=== PATIENT | female | born 1980 | race Caucasian/White ===

== ENCOUNTER 2018-02-27 08:37 | Emergency (ER) | payer OTHER ==
[~2018-02-27] VITALS: Ht 162.6 cm; Wt 75.4 kg
[~2018-02-27 08:37] MED LIST: ALBUAER9 INH; B-COTAB18 PO; CETI10TA10 PO; CLIN45GE PO; CPR/500 PO; FERR1TAB24 PO; FLNIN/ NAE; IBUP-1050 PO; MEDR150I IM; MULT-506 PO; OMEG10002 PO; OMEP20CA9 PO; TRET0.1C42 TOP; ULT/50 PO
[2018-02-27 08:43] VITALS: TEMP 36.8; Ht 162.6 cm; Wt 75.4 kg
[2018-02-27] MEDS ORDERED: MAGN400T6 PO (09:20)
[2018-02-27 09:33] LABS: BASO % 0.2 %; BASO ABS # 0.01 K/uL (0-0.2); EOS % 3.8 %; EOS ABS # 0.16 K/uL (0-0.5); HEMATOCRIT 41.2 % (37-47); HEMOGLOBIN 13.9 g/dL (12.0-16.0); LYMPH % 40.6 %; MEAN CELL VOLUME 96.7 fL (80-100); MEAN CORPUSCULAR HEMOGLOBIN 32.6 pg (25-34); MEAN CORPUSCULAR HGB CONC 33.7 g/dl (32-36); MEAN PLATELET VOLUME 10.8 fL (7.4-10.4); MONO % 7.2 %; NEUT % 48.2 %; NEUT ABS # 2.02 K/uL (1.4-6.5); PLATELET COUNT 214 K/uL (130-400); RED CELL DISTRIBUTION WIDTH CV 12.7 % (11.5-14.5); RED CELL DISTRIBUTION WIDTH SD 44.2 fL (36.4-46.3); WHITE BLOOD COUNT 4.19 K/uL (4.8-10.8)
[2018-02-27 09:57] LABS: CALCIUM 8.7 mg/dl (8.5-10.1); CREATININE 0.96 mg/dl (0.60-1.20); POTASSIUM 4.1 mmol/L (3.5-5.1)
[2018-02-27 10:00] LABS: TOTAL PROTEIN 7.4 gm/dl (6.4-8.2)
--- NOTE | 2018-02-27 10:18 | EMERGENCY ROOM VISIT NOTE ---
History First contact with patient: 08:48 Chief Complaint: NECK PAIN Stated Complaint: NECK PAIN, HEADACHE History of Present Illness The patient is a 37 year old female who presents to the Emergency Room via private vehicle with complaints of "neck pain, headache". The patient states that she has been experiencing neck pain for about 8 years and also a headache of which began potentially months ago but has worsened over the past few weeks. She notes nausea as well as ear pain. She states that she has a history of fibromyalgia. She points to the base of the skull or the spine meets the head is a location of pain that radiates anteriorly to her forehead. It is sharp in nature and severe at times. It is better with sleep and notes it is been getting worse over the past few days. She has tried tramadol, NSAIDs and muscle relaxers without relief. She states that the pain is mostly at the base of her the head and the superiormost portion of the neck. She was recommended chiropractic but does not want to do this. She notes she had an MRI of her head as well as evaluation of the arterial components of the brain of which were normal she states. She denies any prior injury to the head or neck. No history of VT, CVA or TIA. She rates her overall pain is a 3/10. Review of Systems A complete 10-point Review of Systems was discussed with the patient, with pertinent positives and negatives listed in the History of Present Illness. All remaining Review of Systems questions can be considered negative unless otherwise specified. Past Medical/Surgical History Medical Problems: (1) Allergic rhinitis (2) Anxiety State Nos (3) Asthma, Unspecified (4) Esophageal Reflux (5) Polycystic Ovaries Surgical Problems: (1) History of carpal tunnel release (2) History of lumbar discectomy Family History Cancer Diabetes mellitus Seizures Social History Smoking Status: Never Smoker Alcohol Use: none Drug Use: none Marital Status: single Housing Status: lives with family Occupation Status: employed Current/Historical Medications Scheduled Albuterol Sulfate (Proventil Hfa), 2 PUFF INH Q4HR PRN B-Complex Vitamins (Vitamin B Complex), 1 TAB PO QAM Cetirizine Hcl (Zyrtec), 10 MG PO HS Clindamycin Phosphate-Benzoyl (Acanya), 1 APPLN PO DAILY Fluticasone Propionate (Fluticasone Propionate), 2 SPRAYS SARAH BID Magnesium Oxide (Mag-Ox), 400 MG PO DAILY Medroxyprogesterone Acetate (C (Depo-Provera Contraceptiv), 1 INJ IM [id number] Multivitamin (Multivitamin), 1 TAB PO QAM [place]-3 Fatty Acids (Fish Oil), 1 TAB PO QAM Tramadol Hcl (Ultram), 50 MG PO Q4-6HR PRN Tretinoin (Tretinoin), 1 APPLN TOP HS Scheduled PRN Ibuprofen (Advil), 400 MG PO TID PRN for Pain Physical Exam Vital Signs Date Time Temp Pulse Resp B/P (MAP) Pulse Ox O2 Delivery O2 Flow Rate FiO2 02/27/18 10:33 54 18 114/75 100 02/27/18 08:43 36.8 58 18 119/73 100 Room Air Physical Exam VITAL SIGNS - Vital signs and nursing notes were reviewed. Stable. GENERAL - 37-year-old female appearing her stated age who is in no acute distress. Communicates well with provider and answers questions appropriately. SKIN - Without rashes. No meningeal or petechial rash. HEAD - NC/AT. EYES - PERRL with EOMI bilaterally. Sclera anicteric. EARS - No deformities of external structures noted on gross examination bilaterally. External auditory canals without discharge or otorrhea. Tympanic membranes pearly tamayo without retraction or bulging. No fluid or purulent material visualized behind the TM. Handle of malleus, umbo, cone of light, pars tensa/flaccid all easily visualized. NOSE - Midline and without cyanosis. No epistaxis or purulent drainage noted. MOUTH/OROPHARYNX - Without perioral cyanosis. Buccal mucosa pink and moist and without leukoplakia. Tongue midline with equal elevation of palate bilaterally. No tonsillar hypertrophy, erythema, or exudates noted. Fair dentition noted. NECK - Neck with FROM. Supple to palpation. No lymphadenopathy noted. No nuchal rigidity. Minimal superior C-spine tenderness. LUNGS - Chest wall symmetric without accessory muscle use, intercostals retractions, or central cyanosis. Normal vesicular breath sounds CTA B/L. No wheezes, rales, or rhonchi appreciated. CARDIAC - RRR with S1/S2. No murmur, rubs, or gallops appreciated. EXTREMITIES - No clubbing or peripheral cyanosis. No pretibial edema present. + 5/5 strength noted in UE/LE bilaterally. NEUROLOGIC - Cranial nerves II through XII grossly intact. Sensory intact to light touch throughout. PSYCH - A&Ox3 and cooperates fully with examiner. Pt is very pleasant and interacts well with examiner. Medical Decision & Procedures Laboratory Results 02/27/18 09:20 Red Blood Count 4.26, Mean Corpuscular Volume 96.7, Mean Corpuscular Hemoglobin 32.6, Mean Corpuscular Hemoglobin Concent 33.7, Mean Platelet Volume 10.8, Neutrophils (%) (Auto) 48.2, Lymphocytes (%) (Auto) 40.6, Monocytes (%) (Auto) 7.2, Eosinophils (%) (Auto) 3.8, Basophils (%) (Auto) 0.2, Neutrophils # (Auto) 2.02, Lymphocytes # (Auto) 1.70, Monocytes # (Auto) 0.30, Eosinophils # (Auto) 0.16, Basophils # (Auto) 0.01 02/27/18 09:20 Test 02/27/18 09:20 02/27/18 09:25 White Blood Count 4.19 K/uL (4.8-10.8) Red Blood Count 4.26 M/uL (4.2-5.4) Hemoglobin 13.9 g/dL (12.0-16.0) Hematocrit 41.2 % (37-47) Mean Corpuscular Volume 96.7 fL (80-100) Mean Corpuscular Hemoglobin 32.6 pg (25-34) Mean Corpuscular Hemoglobin Concent 33.7 g/dl (32-36) Platelet Count 214 K/uL (130-400) Mean Platelet Volume 10.8 fL (7.4-10.4) Neutrophils (%) (Auto) 48.2 % Lymphocytes (%) (Auto) 40.6 % Monocytes (%) (Auto) 7.2 % Eosinophils (%) (Auto) 3.8 % Basophils (%) (Auto) 0.2 % Neutrophils # (Auto) 2.02 K/uL (1.4-6.5) Lymphocytes # (Auto) 1.70 K/uL (1.2-3.4) Monocytes # (Auto) 0.30 K/uL (0.11-0.59) Eosinophils # (Auto) 0.16 K/uL (0-0.5) Basophils # (Auto) 0.01 K/uL (0-0.2) RDW Standard Deviation 44.2 fL (36.4-46.3) RDW Coefficient of Variation 12.7 % (11.5-14.5) Immature Granulocyte % (Auto) 0.0 % Immature Granulocyte # (Auto) 0.00 K/uL (0.00-0.02) Anion Gap 6.0 mmol/L (3-11) Est Creatinine Clear Calc Drug Dose 79.8 ml/min Estimated GFR () 87.6 Estimated GFR (Non- 75.6 BUN/Creatinine Ratio 9.6 (10-20) Calcium Level 8.7 mg/dl (8.5-10.1) Magnesium Level 1.9 mg/dl (1.8-2.4) Total Bilirubin 0.3 mg/dl (0.2-1) Aspartate Amino Transf (AST/SGOT) 18 U/L (15-37) Alanine Aminotransferase (ALT/SGPT) 24 U/L (12-78) Alkaline Phosphatase 47 U/L (45-117) Total Protein 7.4 gm/dl (6.4-8.2) Albumin 4.0 gm/dl (3.4-5.0) Globulin 3.4 gm/dl (2.5-4.0) Albumin/Globulin Ratio 1.2 (0.9-2) Lyme Disease IgG Antibody NEG (NEG) Lyme Disease IgM Antibody NEG (NEG) Urine Color YELLOW Urine Appearance CLEAR (CLEAR) Urine pH 6.5 (4.5-7.5) Urine Specific [place] 1.009 (1.000-1.030) Urine Protein NEG (NEG) Urine Glucose (UA) NEG (NEG) Urine Ketones NEG (NEG) Urine Occult Blood NEG (NEG) Urine Nitrite NEG (NEG) Urine Bilirubin NEG (NEG) Urine Urobilinogen NEG (NEG) Urine Leukocyte Esterase NEG (NEG) Urine Test NEG (NEG) Medical Decision Patient was seen and evaluated as above in room A4. Review was performed of nursing notes and vital signs. After obtaining a thorough history and physical examination the above work up was performed. She presents to us today with neck pain 8 years and a headache that is been worsening over the past few weeks. She is nontoxic on exam. Vital signs are stable. No evidence of meningitis or encephalitis. I did elect to obtain baseline labs. There is no concerning leukocytosis or anemia. Slight decrease in white blood cell count of 4.19 at which I believe to be no emergent significance. Metabolic panel reveals no evidence of kidney or liver failure. Urinalysis negative. Urine test negative. Lyme testing negative. She was offered imaging here however I believe that the risk outweighs the benefit. She was offered lumbar puncture and declined. I suspect she is likely experiencing tension headaches but could also have underlying migraines without any emergent cause. She was recommended to follow with her family doctor and potentially see a blasting entry specialist if the neck pain persists. She was educated upon worrisome symptoms which to return. The patient was educated upon management, had questions answered prior to discharge, and was discharged home in good condition. In the evaluation and treatment of this patient, the following differential diagnoses were considered: Migraine Headache, Intracranial Hemorrhage, Subdural Hematoma, Subarachnoid Hemorrhage, Cerebral Aneurysm, Temporal/Giant Cell Arteritis, Tension Headache, Meningitis, Encephalitis, or Hydrocephalus, Musculoskeletal Strain, Discitis, Cervical Spine Fracture, Cervical Spine Dislocation, Cervical Spine Subluxation, Cervical Spondylosis, Fibromyalgia, Osteoarthritis, Polymyalgia Rheumatica, Psychogenic Pain Disorder, Tumor of Soft Tissue or Spine. Impression Primary Impression: Neck pain Departure Information Dispostion Home / Self-Care Condition GOOD Referrals Corina Shelby D.O. (PCP) Christian Hemphill D.O. Patient Instructions My [facility] Additional Instructions You have been treated in the Emergency Department for neck pain. Please continue your regular medications. For pain control, you can use the following [id number] medicines: - Regular strength (325mg/tab) Tylenol (acetaminophen) 2 tabs every 4-6 hours as needed. Do not exceed 12 tablets in a 24 hour period. Avoid taking more than 3 grams (3000 mg) of Tylenol per day. This includes any other sources of acetaminophen you may take on a regular basis. - Regular strength (200 mg/tab) Advil (ibuprofen) 1-2 tabs every 4-6 hours as needed. Do not exceed a dose of 3200 mg per day. Please call the blasting entry specialist Dr. Hemphill. Please call them as soon as possible schedule follow-up. You should schedule a follow-up appointment in 2-3 days with your Primary Care Provider for further evaluation and treatment of your neck and head pain. Return to the Emergency Department if your current symptoms worsen despite treatment course outlined above, or if you develop any of the following symptoms : intractable pain despite aforementioned treatment course, loss of control of your bowel or bladder, numbness or tingling in your groin, or development of a fever.
[2018-02-27 10:33] VITALS: BP 114/75; PULSE 54; O2SAT 100
== END 2018-02-27 10:34 | disposition home or self-care (01) ==
LOC: C.EDB 08:40 → C.EDA 10:34
DX: M54.2 Cervicalgia (principal); F41.9 Anxiety disorder, unspecified; J45.909 Unspecified asthma, uncomplicated; K21.9 Gastro-esophageal reflux disease without esophagitis; Z79.899 Other long term (current) drug therapy